=== PATIENT | male | born 1985 | race Caucasian/White ===

== ENCOUNTER 2020-03-06 14:51 | Emergency (ER) | payer OTHER ==
[~2020-03-06] VITALS: Ht 195.6 cm; Wt 136.1 kg
[2020-03-06] MEDS ORDERED: WELLBUTRIN XL300 MG PO (15:10)
[2020-03-06] MEDS ORDERED: BACTRIM DS TAB1 EACH PO (15:10)
[2020-03-06 15:55] VITALS: BP 155/93
== END 2020-03-06 15:56 | disposition home or self-care (01) ==
LOC: M.ERS 14:51
DX: L02.415 Cutaneous abscess of right lower limb (principal); Z88.2 Allergy status to sulfonamides; Z88.8 Allergy status to other drugs, medicaments and biological substances